=== PATIENT | female | born 1965 | race Caucasian/White ===

== ENCOUNTER 2017-02-28 08:00 | Outpatient (CLI) | payer BC | END 2017-02-28 08:01 | disposition home or self-care (01) | LOC: BICMAMMO 08:00 | PROVIDERS: ATTEND Internal Medicine Hematology & Oncology | DX: Z08 Encounter for follow-up examination after completed treatment for malignant neoplasm (principal); Z85.3 Personal history of malignant neoplasm of breast | CPT/HCPCS: G0206-LT; G0279 ==

== ENCOUNTER 2017-04-24 08:41 | Outpatient (CLI) | payer BC ==
[2017-04-24] MEDS ORDERED: ISOVUE-370 76%-LOCM 1 ML ONE (13:35)
== END 2017-04-24 08:42 | disposition home or self-care (01) ==
LOC: BICCT 08:41
PROVIDERS: ATTEND Internal Medicine Hematology & Oncology
DX: C50.411 Malignant neoplasm of upper-outer quadrant of right female breast (principal); J98.4 Other disorders of lung; K80.80 Other cholelithiasis without obstruction; I71.2 Thoracic aortic aneurysm, without rupture; Z98.890 Other specified postprocedural states
CPT/HCPCS: 71260; 74160

== ENCOUNTER 2017-09-14 14:08 | Outpatient (CLI) | payer BC | END 2017-09-14 14:09 | disposition home or self-care (01) | LOC: BICMAMMO 14:08 | PROVIDERS: ATTEND Internal Medicine Hematology & Oncology | DX: L29.9 Pruritus, unspecified (principal); Z85.3 Personal history of malignant neoplasm of breast | CPT/HCPCS: 77066; G0279 ==

== ENCOUNTER 2017-10-19 07:59 | Outpatient (CLI) | payer BC, MEDICARE ==
[2017-10-19] MEDS ORDERED: Iopamidol 370 76% 100 ML VIAL ONE (09:00)
--- NOTE | 2017-10-19 12:27 | CT ---
CT CHEST WITH CONTRAST: CT ABDOMEN WITH CONTRAST: HISTORY: Breast cancer, I74.4. Malignant neoplasm, upper outer quadrant, right female breast, C50.411. COMPARISON: Outside facility chest, abdomen, and pelvis CT from April 2017. FINDINGS: No mediastinal adenopathy. Heart size is normal. Pulmonary trunk size is normal. Post surgical wayne nges, right breast. Some peripheral pleural scarring in the right upper lobe, anteriorly. No suspicious pulmonary nodule . No internal mammary adenopathy. Left breast is unremarkable. Liver is unremarkable. Cholelithiasis is present. The spleen is unremarkable, as well as the pancreas. The kidneys are unremarkable. Mild spondylosis, mid thoracic spine. Incidental note of persistent left supracardinal vein. IMPRESSION: No evidence of metastatic disease in the chest or abdomen. POS: SCARLET
== END 2017-10-19 08:00 | disposition home or self-care (01) ==
LOC: SCSCT 07:59
PROVIDERS: ATTEND Internal Medicine Hematology & Oncology
DX: C50.919 Malignant neoplasm of unspecified site of unspecified female breast (principal)
CPT/HCPCS: 71260; 74160

== ENCOUNTER 2018-04-25 07:33 | Outpatient (CLI) | payer BC ==
--- NOTE | 2018-04-25 09:16 | CT ---
CT CHEST WITH IV COTNRAST CT ABDOMEN WITH IV CONTRAST: PROVIDED CLINICAL HISTORY: Breast cancer. FINDINGS: Comparison is made with a study dated 10/19/2017. The heart, pericardium, and great vessels demonstrate a stable CT appearance. There is interval development of several enlarged left axillary lymph nodes measuring up to 1.5 cm in short axis. No additional thoracic lymph node enlargement is apparent. Changes of prior right mastectomy and axillary lymph node dissection are again seen. The lungs are free of significant opacity. The airway appears patent and of normal caliber. There is an approximately 1 cm x 5 mm (transverse x AP) pleural-based mass present at the posterior l ateral aspect of the right hemithorax deep to the right 8th rib. There is an abnormal area of soft t issue density present at the medial aspect of the right hemithorax in a paraspinous location adjacent to the T7 and T8 vertebral bodies, measuring approximately 1.7 x 0.8 cm. Additional abnormal pleur al-based soft tissue density is seen adjacent to the T6 vertebral body on the right. There is no evidence for pleural fluid or pneumothorax. The airway appears patent and of normal evelin norberto. Gallstones are again seen. The solid abdominal organs demonstrate a stable CT appearance. No bowel dilatation, inflammatory fat stranding, free fluid, or lymph node enlargement apparent. The osseous structures demonstrate no concerning osteoblastic or osteolytic lesions. IMPRESSION: 1. Development of pleural-based soft tissue masses involving the right hemithorax concerning for ple ural-based metastatic disease. 2. Development of left axillary lymph node enlargement, which may also reflect metastatic disease. 3. Otherwise, stable CT of the chest and abdomen. POS: TPC
== END 2018-04-25 07:34 | disposition home or self-care (01) ==
LOC: BICCT 07:33
PROVIDERS: ATTEND Internal Medicine Hematology & Oncology
DX: C50.411 Malignant neoplasm of upper-outer quadrant of right female breast (principal); R91.8 Other nonspecific abnormal finding of lung field; R59.0 Localized enlarged lymph nodes
CPT/HCPCS: 71260; 74160

== ENCOUNTER 2018-04-26 11:29 | Emergency (ER) | payer BC ==
--- NOTE | 2018-04-26 12:53 | ULT ---
RIGHT UPPER EXTREMITY VENOUS ULTRASOUND: Indication: Right upper extremity edema and redness. Technique: Grayscale, color doppler, and spectral doppler images were obtained of the venous structur es of the right upper extremity. FINDINGS: There is appropriate flow, augmentation, and compression involving the venous structures of the right upper extremity. IMPRESSION: No evidence of venous thrombosis within the right upper extremity. POS: MILADIS
[2018-04-26 13:25] LABS: Anion Gap 15 mmol/L (10-20); BUN (Urea Nitrogen) 13 mg/dL (9.8-20.1); Calc. Creatinine Clearance 0 mL/min (70-130); Calcium 8.9 mg/dL (7.8-10.44); Carbon Dioxide 23 mmol/L (22-29); Chloride 106 mmol/L (98-107); Estimated GFR-MDRD 73; Glucose 96 mg/dL (70-105); Potassium 3.6 mmol/L (3.5-5.1); Sodium 140 mmol/L (136-145)
[2018-04-26] MEDS ORDERED: Piperacillin/Tazobactam 4.5 GM VIAL ONE (13:25)
[2018-04-26] MEDS ORDERED: Sodium Chloride 0.9% 100 ML ONE ×2 (13:26→14:34)
[2018-04-26 13:37] LABS: Band 1 % (5-11); Eosinophils 2 % (0-10); Hemoglobin 11.1 g/dL (12.0-16.0); Lymphocytes 33 % (21-51); MDiff Complete? YES; Mean Corpuscular Hemoglobin 29.1 pg (27.0-31.0); Mean Corpuscular Volume 88.4 fL (78.0-98.0); Mean Platelet Volume 9.1 fL (7.4-10.4); Monocytes 3 % (0-10); Neutrophil 57 % (42-75); Platelet Count 228 thou/uL (130-400); Platelet Morphology Comment Appears Adequate; RBC Distribution Width 12.2 % (11.5-14.5); Reactive Lymphocytes 4 % (0-10); White Blood Cell (WBC) Count 8.8 thou/uL (4.8-10.8)
[2018-04-26] MEDS ORDERED: Vancomycin HCl 500 MG VIAL ONE (14:29)
== END 2018-04-26 16:10 | disposition home or self-care (01) ==
LOC: SCSER 11:29
DX: L03.113 Cellulitis of right upper limb (principal); E78.5 Hyperlipidemia, unspecified; Z79.899 Other long term (current) drug therapy
CPT/HCPCS: 80048; 83605; 85025; 85379; 87040; 96365; 96367; J2543; J3370; J7050

== ENCOUNTER 2018-05-02 12:39 | Outpatient (CLI) | payer BC ==
--- NOTE | 2018-05-02 15:38 | PET ---
PET WITH CT SKULL TO MID THIGH: CLINICAL HISTORY: Breast cancer. Reference made to CT thorax exam dated 04/25/18, 10/19/17, and 10/27/16. FINDINGS: There is appropriate biodistribution of radiotracer activity. RADIOPHARMACEUTICAL: 11.75 mCi F18-FDG IV intermixed with 10 mL sodium chloride 0.9%. FINDINGS: There is hypermetabolic left axillary adenopathy, with maximum SUV of 9.3. This correlates to enlarge d lymph nodes on the most recent comparison chest CT. Pleural based mass of the posteromedial right h emithorax adjacent to the thoracic vertebral column demonstrates hypermetabolic activity with maximum SUV of 6.9. There is also posteriorly located pleural based nodularity along the right hemithorax, w ith SUV maximum of 3.3. These multifocal, pleural based masses of the medial and posterior right bartolo thorax have developed/enlarged when referencing comparison exams and given hypermetabolic activity, a re most consistent with progressive metastases, along the contralateral left axillary adenopathy. Incidental note of cholelithiasis and moderate gallbladder distention. There is mild increased metabo lic activity involving lateral right chest wall soft tissues abutting the posterior margin of right m astectomy site with SUV maximum of 3, nonspecific. This finding is just posterior to the numerous met allic clips of the anterolateral right chest wall. There is mild pleural thickening and slight degree of underlying subpleural interstitial prominence of the lateral right lung. There is a left chest port with tip terminating at SVC. No hypermetabolic osseous lesions are identif ied. IMPRESSION: Evidence of intrathoracic metastasis, bilaterally, involving hypermetabolic left axillary adenopathy and multifocal pleural based hypermetabolic lesions of the posteromedial right hemithorax. POS: SCARLET
== END 2018-05-02 12:40 | disposition home or self-care (01) ==
LOC: PET 12:39
PROVIDERS: ATTEND Internal Medicine Hematology & Oncology
DX: C50.919 Malignant neoplasm of unspecified site of unspecified female breast (principal); C50.411 Malignant neoplasm of upper-outer quadrant of right female breast; C79.89 Secondary malignant neoplasm of other specified sites; R59.0 Localized enlarged lymph nodes
CPT/HCPCS: 78815; A9552

== ENCOUNTER 2018-05-09 08:07 | Day surgery (SDC) | payer BC ==
[2018-05-08 14:48] VITALS: BMI 39.4
[~2018-05-09 08:07] MED LIST: Prevnar 13-Val Conj/PF 0.5 ML SYRINGE IM ONE
[2018-05-09 08:34] LABS: INR-International Normal Ratio 0.9; PTT 30.6 SEC (22.9-36.1); Prothrombin Time 12.6 SEC (12.0-14.7)
[2018-05-09 09:49] VITALS: BP 116/78; TEMP 97.7
--- NOTE | 2018-05-09 12:06 | ULT ---
ULTRASOUND GUIDED LYMPH NODE BIOPSY: HISTORY: Left axillary mass. COMPARISON: PET CT 05/02/2018. FINDINGS: The patient was brought to the ultrasound suite. All questions were answered. Informed consent was obtained. Timeout was performed. The patient's left axilla was prepped and draped in normal sterile fashion. Three mL of Lidocaine wa s instilled into the superficial and deep soft tissues. Using a 20-gauge 10 mL needle, a total of 2 cores were obtained. The patient tolerated the procedure well without complication. IMPRESSION: Technically successful ultrasound-guided left axillary lymph node biopsy. POS: SCARLET
== END 2018-05-09 09:50 | disposition home or self-care (01) ==
LOC: ULT 08:07
PROVIDERS: ATTEND Internal Medicine Hematology & Oncology
PROC: 07D63ZX Extraction of Left Axillary Lymphatic, Percutaneous Approach, Diagnostic (ICD-10-PCS; principal; 2018-05-09)
DX: R22.2 Localized swelling, mass and lump, trunk (principal); Z87.891 Personal history of nicotine dependence; Z88.8 Allergy status to other drugs, medicaments and biological substances
CPT/HCPCS: 36415; 38505; 85610; 85730; 88305

== ENCOUNTER 2018-05-22 12:36 | Outpatient (CLI) | payer BC | END 2018-05-22 12:37 | disposition home or self-care (01) | LOC: ULT 12:36 | PROVIDERS: ATTEND Internal Medicine Hematology & Oncology | DX: C50.411 Malignant neoplasm of upper-outer quadrant of right female breast (principal); I08.1 Rheumatic disorders of both mitral and tricuspid valves; Z79.899 Other long term (current) drug therapy | CPT/HCPCS: 93306 ==

== ENCOUNTER 2018-05-27 11:15 | Emergency (ER) | payer BC ==
[~2018-05-27 11:15] MED LIST changes: +Iopamidol 370 76% 100 ML VIAL ONE; -Prevnar 13-Val Conj/PF 0.5 ML SYRINGE IM ONE
[2018-05-27] MEDS ORDERED: Morphine 4 MG/ML VIAL ONE (11:42)
[2018-05-27] MEDS ORDERED: Ondansetron PF 4 MG/2 ML Vial ONE (11:48)
[2018-05-27 11:53] LABS: ALT (SGPT) 24 U/L (8-55); AST (SGOT) 22 U/L (5-34); Albumin 3.8 g/dL (3.5-5.0); Alkaline Phosphatase 66 U/L (40-150); Anion Gap 16 mmol/L (10-20); BUN (Urea Nitrogen) 13 mg/dL (9.8-20.1); Bilirubin, Total 0.6 mg/dL (0.2-1.2); Calc. Creatinine Clearance 0 mL/min (70-130); Calcium 10.7 mg/dL (7.8-10.44); Carbon Dioxide 21 mmol/L (22-29); Chloride 101 mmol/L (98-107); Estimated GFR-MDRD 74; Globulin 3.5 g/dL (2.4-3.5); Glucose 112 mg/dL (70-105); Lipase 8 U/L (8-78); Potassium 4.2 mmol/L (3.5-5.1); Protein, Total 7.3 g/dL (6.0-8.3); Sodium 134 mmol/L (136-145)
[2018-05-27 12:02] LABS: Band 1 % (5-11); Eosinophils 1 % (0-10); Hemoglobin 12.3 g/dL (12.0-16.0); Hypochromia SLIGHT = 6-15 cells (100X) (0-5/hpf); Large Platelets SLIGHT; Lymphocytes 32 % (21-51); MDiff Complete? YES; Mean Corpuscular HGB CONC 32.7 g/dL (32.0-36.0); Mean Corpuscular Hemoglobin 28.9 pg (27.0-31.0); Mean Corpuscular Volume 88.2 fL (78.0-98.0); Mean Platelet Volume 10.1 fL (7.4-10.4); Monocytes 20 % (0-10); Neutrophil 42 % (42-75); Platelet Count 133 thou/uL (130-400); Platelet Morphology Comment Appears Adequate; Red Blood Cell (RBC) Count 4.26 mill/uL (4.20-5.40); White Blood Cell (WBC) Count 3.4 thou/uL (4.8-10.8)
--- NOTE | 2018-05-27 13:57 | CT ---
CT OF THE CHEST AND ABDOMEN AND PELVIS: Date: 05/27/18 COMPARISON: CT of chest and abdomen dated 04/25/18, whole body PET scan dated 05/02/18. HISTORY: Diarrhea. TECHNIQUE: Axial CT imaging at 5 mm intervals from the thoracic inlet through the pubic symphysis with IV contra st. Coronal reformatted imaging obtained. FINDINGS: The lack of oral contrast media limits assessment of the bowel. There is evidence of prior right-side d mastectomy with numerous postoperative clips along the right chest wall and in the right axillary r egion. Enlarged lymph nodes are noted within the left axilla, as seen on prior studies, measuring up to 1.7 cm in short axis dimension. There is a Port-A-Cath present, distal tip within the distal SVC. No discrete hilar or mediastinal adenopathy. There is no pneumothorax noted on either side. No discrete pulmonary parenchymal mass lesion or nodule is evident on either side. There are pleural based areas of soft tissue thickening within the posterior aspect of the right hemithorax, including anterior to the right 8th rib on axial image 41 measuring 7-8 mm in AP dimension, and anterior to the 9th rib on image 45 measuring 5.0 mm. These were described on the 05/02/[address] as being FDG-avid. Vascular structures of the chest appear patent. Review of the osseous structures of the chest demonstrate no acute finings. CT of abdomen and pelvis demonstrates no free intraperitoneal air or fluid. Cholelithiasis is noted. There is a tiny hypodensity in the right lobe of the liver on image 54 measu ring 4.0 mm, too small to characterize. The spleen, pancreas, adrenal glands, and kidneys are unremar kable. The colon demonstrates a mild degree of diffuse colonic wall prominence, significance uncertain as th ere is no significant pericolonic fat stranding. The prominence of the colonic wall is seen from the cecum to the level of the distal descending colon. A mild degree of colitis is a possibility. However , this could be solely on the basis of underdistention. No evidence for bowel obstruction or abscess. The vascular structures of the abdomen/pelvis appear patent. No pelvic, mesenteric, or retroperitonea l lymphadenopathy is seen Review of the osseous structures of the abdomen/pelvis demonstrates no worrisome lytic or blastic les ions. IMPRESSION: 1. Small areas of pleural based plaque formation in the right hemithorax and lymphadenopathy in the left axillary region, evidence of metastatic disease as seen on the 05/02/[address] 2. Postoperative change including axillary node dissection and mastectomy on the right. 3. Nonspecific diffuse prominence of the colonic wall with no pericolonic fat stranding. Findings may signify underdistention or mild colitis. No evidence for bowel obstruction or abscess. POS: MLIADIS
[2018-05-27 14:21] LABS: Bilirubin Negative (Negative); Blood, Urine Trace (Negative); Clarity Clear (Clear); Glucose, Urine (Dipstick) Negative (Negative); Leukocyte Negative (Negative); Nitrite Negative (Negative); Protein, Urine (Dipstick) Negative (Neg-Trace); Urobilinogen 0.2 mg/dL (0.2-1.0); pH, Urine 7.5 (5.0-9.0)
[2018-05-27 14:26] LABS: Bacteria/HPF Rare-Few HPF (None Seen); RBC/HPF 0-3 HPF (0-3); WBC/HPF None Seen HPF (0-3)
== END 2018-05-27 14:01 | disposition home or self-care (01) ==
LOC: SCSER 11:15
DX: R11.2 Nausea with vomiting, unspecified (principal); R19.7 Diarrhea, unspecified; E78.5 Hyperlipidemia, unspecified
CPT/HCPCS: 71260; 74177; 80053; 81003; 81015; 83605; 83690; 85025; 96361; 96374; 96375; J2270; J2405; Q9967

== ENCOUNTER 2018-07-18 10:29 | Outpatient (CLI) | payer BC ==
--- NOTE | 2018-07-18 12:12 | PET ---
EXAM: PET CT skull to mid thigh COMPARISON: 05/02/2018 HISTORY: Inflammatory right breast cancer with recurrence in 2019 TECHNIQUE: A PET/CT was performed from the skull to the mid thigh after administration of 10.5 millic uries of F-18 FDG. Evaluation was performed on a [email or web address] workstation. FINDINGS: NECK: No areas of hypermetabolic activity CHEST: The patient is status post right mastectomy. Hypermetabolic activity is seen in the left nippl e with thickening of the anterior skin. Maximum SUV value is 2.9. The previously seen enlarged hypermetabolic left axillary lymph nodes are no longer enlarged or hypermetabolic. There is hypermeta bolic activity in the right axillary surgical bed with max SUV of 3.3. The previously seen hypermetabolic nodules that were pleural-based in the right thorax are no longer present. ABDOMEN/PELVIS: No areas of hypermetabolic activity SKELETON: Diffuse hypermetabolic activity likely represents marrow reactivation. No focal suspicious areas of hypermetabolic activity. Hypermetabolic activity in the proximal aspect of both arms likeliest represents movement during the time of the exam. CT images used for attenuation correction show a Mediport with its tip in these appear vena cava. Gal lstones are seen in the gallbladder.. IMPRESSION: 1. Improvement in left axillary lymphadenopathy 2. Persistent hypermetabolic activity in the left nipple/skin 3. Nonspecific hypermetabolic activity in the right axillary surgical bed.
== END 2018-07-18 10:30 | disposition home or self-care (01) ==
LOC: PET 10:29
PROVIDERS: ATTEND Internal Medicine Hematology & Oncology
DX: C50.911 Malignant neoplasm of unspecified site of right female breast (principal); R59.0 Localized enlarged lymph nodes
CPT/HCPCS: 78815; A9552

== ENCOUNTER 2018-07-30 09:42 | Outpatient (CLI) | payer BC ==
--- NOTE | 2018-07-30 10:31 | MMO ---
Left Breast MAMMO Unilat Diag DDI LT+RADHA. CLINICAL HISTORY: Patient is 52 years old and is seen for diagnostic exam and skin thickening or retraction on clinical examination in the left breast. The patient has no family history of breast cancer. The patient has a history of right Mastectomy at age 49 - malignant. VIEWS: The views performed were: left craniocaudal with tomosynthesis; left mediolateral oblique with tomosynthesis; and left mediolateral. FILMS COMPARED: The present examination has been compared to prior imaging studies performed at [facility] on 02/24/2016, 02/28/2017 and 09/14/2017, and at [facility] on 04/01/2015. MAMMOGRAM FINDINGS: There are scattered fibroglandular densities. There are no suspicious masses, calcifications or areas of architectural distortion. There are benign appearing calcifications in both breasts. Stable left breast mass. There are no suspicious masses, suspicious calcifications, or new areas of architectural distortion. IMPRESSION: THERE IS NO MAMMOGRAPHIC EVIDENCE OF MALIGNANCY. A ROUTINE FOLLOW-UP MAMMOGRAM IN 1 YEAR IS RECOMMENDED. THE RESULTS OF THIS EXAM WERE SENT TO THE PATIENT. ACR BI-RADS Category 2 - Benign finding MAMMOGRAPHY NOTE: 1. A negative mammogram report should not delay a biopsy if a dominant of clinically suspicious mass is present. 2. Approximately 10% to 15% of breast cancers are not detected by mammography. 3. Adenosis and dense breasts may obscure an underlying neoplasm.
== END 2018-07-30 09:43 | disposition home or self-care (01) ==
LOC: BICMAMMO 09:42
PROVIDERS: ATTEND Internal Medicine Hematology & Oncology
DX: C50.411 Malignant neoplasm of upper-outer quadrant of right female breast (principal); R93.7 Abnormal findings on diagnostic imaging of other parts of musculoskeletal system; R92.8 Other abnormal and inconclusive findings on diagnostic imaging of breast
CPT/HCPCS: G0279

== ENCOUNTER 2018-08-09 12:40 | Outpatient (CLI) | payer BC | END 2018-08-09 12:41 | disposition home or self-care (01) | LOC: ULT 12:40 | PROVIDERS: ATTEND Internal Medicine Hematology & Oncology | DX: Z51.11 Encounter for antineoplastic chemotherapy (principal); C50.919 Malignant neoplasm of unspecified site of unspecified female breast; R93.7 Abnormal findings on diagnostic imaging of other parts of musculoskeletal system; I08.3 Combined rheumatic disorders of mitral, aortic and tricuspid valves; Z79.899 Other long term (current) drug therapy | CPT/HCPCS: 93306 ==

== ENCOUNTER 2018-09-19 08:15 | Outpatient (CLI) | payer BC ==
--- NOTE | 2018-09-19 11:54 | PET ---
PET CT: HISTORY: 52-year-old female with inflammatory breast cancer, diagnosed in 2015 with recurrence in 2019. TECHNIQUE: PET scanning with CT attenuation correction was performed from the base of the brain through the prox imal thighs following the intravenous administration of 11.4 mCi F18-FDG in the right-sided Port-A-Ca th. COMPARISON: PET CT of 07/18/18. FINDINGS: No nya hypermetabolism is seen in the neck, chest, axilla, abdomen, or pelvis. No hypermetabolic pu lmonary nodules, liver, adrenal, or skeletal lesions are seen. There is physiologic activity in the GI and tracts, heart, and the visualized portions of the brai n. The CT scan used for attenuation correction demonstrates no evidence for pleural effusions or ascites . There are postop changes of right mastectomy. Cholelithiasis is again seen. IMPRESSION: No evidence of metastatic disease. POS: SCARLET
== END 2018-09-19 08:16 | disposition home or self-care (01) ==
LOC: PET 08:15
PROVIDERS: ATTEND Internal Medicine Hematology & Oncology
DX: C50.919 Malignant neoplasm of unspecified site of unspecified female breast (principal)
CPT/HCPCS: 78815; A9552

== ENCOUNTER 2018-11-11 13:56 | Outpatient (CLI) | payer BC | END 2018-11-11 13:57 | disposition home or self-care (01) | LOC: ULT 13:56 | PROVIDERS: ATTEND Internal Medicine Hematology & Oncology | DX: C50.411 Malignant neoplasm of upper-outer quadrant of right female breast (principal); I08.3 Combined rheumatic disorders of mitral, aortic and tricuspid valves | CPT/HCPCS: 93306 ==

== ENCOUNTER 2018-12-18 10:59 | Outpatient (CLI) | payer BC ==
--- NOTE | 2018-12-18 11:36 | BD ---
EXAM: Bone densitometry using DEXA HISTORY: 53 yo female. Screening for postmenopausal osteoporosis. Unspecified menopausal and perimenopausal di sorder FINDINGS: L1--bone mineral density 0.997 g/sq cm; T score 0.1 ; Z score 0.9 L2--bone mineral density 0.976 g/sq cm; T score -0.5 ; Z score 0.4 L3--bone mineral density 1.044 g/sq cm; T score -0.4 ; Z score 0.6 L4--bone mineral density 1.122 g/sq cm; T score 0.6 ; Z score 1.5 Total L1-L4--bone mineral density 1.039 g/sq cm; T score -0.1 ; Z score 0.9 Left femoral neck--bone mineral density0.950; T score 0.9 ; Z score 1.8 Total proximal left femur--bone mineral density 1.221; T score 2.3 ; Z score 2.9 IMPRESSION: Normal BMD.
== END 2018-12-18 11:00 | disposition home or self-care (01) ==
LOC: BICMAMMO 10:59
PROVIDERS: ATTEND Internal Medicine Hematology & Oncology
DX: Z13.820 Encounter for screening for osteoporosis (principal); N95.9 Unspecified menopausal and perimenopausal disorder
CPT/HCPCS: 77080

== ENCOUNTER 2018-12-20 08:15 | Outpatient (CLI) | payer BC ==
--- NOTE | 2018-12-20 11:40 | PET ---
PET CT SKULL TO MID THIGH: COMPARISON: Prior PET/CT 09/19/2018. HISTORY: Malignant neoplasm of upper outer quadrant right breast. TECHNIQUE: A PET/CT was performed from the skull to the mid thigh after administration of 11.3 millicuries of F- 18 FDG. Evaluation was performed on a [employer] workstation. FINDINGS: NECK: No areas of hypermetabolic activity CHEST: There has been involvement of hypermetabolic activity within an enlarging left axillary lymph node, which measures 1.7 cm in diameter. The maximum SUV is 4. ABDOMEN/PELVIS: No areas of hypermetabolic activity. SKELETON: There are foci of mild hypermetabolic activity involving right ribs, seen at the posterior lateral right 8th rib, in the posterior medial right 6th rib, 2.9 and 3.1 SUV maximum, respectively. CT images used for attenuation correction show cholelithiasis.. IMPRESSION: 1. Newly developed hypermetabolic, enlarged left axillary lymph node. 2. Mild hypermetabolic foci of right ribs, as discussed above. Discrete CT correlate osseous abnormal ities are not visualized. Findings may be further assessed with whole body bone scan. Transcribed Date/Time: 12/20/2018 12:12 PM
== END 2018-12-20 08:16 | disposition home or self-care (01) ==
LOC: PET 08:15
PROVIDERS: ATTEND Internal Medicine Hematology & Oncology
DX: C50.411 Malignant neoplasm of upper-outer quadrant of right female breast (principal); R59.0 Localized enlarged lymph nodes; C79.9 Secondary malignant neoplasm of unspecified site
CPT/HCPCS: 78815; 82728; A9552

== ENCOUNTER 2019-02-18 13:11 | Outpatient (CLI) | payer BC | END 2019-02-18 13:12 | disposition home or self-care (01) | LOC: ULT 13:11 | PROVIDERS: ATTEND Internal Medicine Hematology & Oncology | DX: Z51.11 Encounter for antineoplastic chemotherapy (principal); C50.411 Malignant neoplasm of upper-outer quadrant of right female breast | CPT/HCPCS: 93306 ==

== ENCOUNTER 2019-03-11 13:11 | Outpatient (CLI) | payer BC ==
--- NOTE | 2019-03-11 15:04 | PET ---
Radionucleotide PET scan with CT attenuation correction HISTORY: Right breast cancer upper outer quadrant. Metastatic disease. Restaging. COMPARISON: Multiple exams back to 05/02/2018. FINDINGS: Physiologic uptake of radiotracer throughout the enteric system and along each urinary trac t. In region of hypermetabolic left axillary adenopathy on the prior study, no abnormal uptake is present on the current exam. At the posterior medial aspect of the right upper chest pleural, in area of thickening and increase a ctivity on older exams, uptake is more conspicuous on today's study, with a maximum SUV of 4.3 (most recently 3.2). It has waxed and waned subtly over the course of the patient's PET exams. Simila r in appearance to the 05/02/2018 study. Right rib abnormalities on the prior study are not hypermetabolic on today's exam. Postoperative changes the right breast again demonstrated. Stones within the gallbladder lumen. IMPRESSION: Overall improvement since the most recent study, with resolution of the hypermetabolic le ft axillary lymph node.
== END 2019-03-11 13:12 | disposition home or self-care (01) ==
LOC: PET 13:11
PROVIDERS: ATTEND Internal Medicine Hematology & Oncology
DX: C50.411 Malignant neoplasm of upper-outer quadrant of right female breast (principal); R93.7 Abnormal findings on diagnostic imaging of other parts of musculoskeletal system
CPT/HCPCS: 78815; A9552

== ENCOUNTER 2019-06-19 12:27 | Outpatient (CLI) | payer BC | END 2019-06-19 12:28 | disposition home or self-care (01) | LOC: ULT 12:27 | PROVIDERS: ATTEND Internal Medicine Hematology & Oncology | DX: Z51.11 Encounter for antineoplastic chemotherapy (principal); C50.411 Malignant neoplasm of upper-outer quadrant of right female breast; I08.1 Rheumatic disorders of both mitral and tricuspid valves; Z79.899 Other long term (current) drug therapy | CPT/HCPCS: 93306 ==

== ENCOUNTER 2019-07-18 08:17 | Outpatient (CLI) | payer BC ==
--- NOTE | 2019-07-18 14:00 | PET ---
Radionucleotide PET scan with CT attenuation correction HISTORY: Malignant neoplasm upper outer quadrant right female breast. Metastatic disease. Restaging. COMPARISON: 03/11/2019 and 12/21/2019. FINDINGS: Physiologic uptake of radiotracer throughout the enteric system and along each urinary trac t. Postoperative changes of the right breast. No hypermetabolic axillary adenopathy is evident. A small focus of activity in the superior vena cava is associated with injection of radiotracer through the Mediport. At the posterior medial aspect of the right thoracic cavity, where a subtle ill-defined area of soft tissue density abuts the right side of the T5 and T6 vertebral bodies, abnormal uptake is again demonstrated with max SUV now 7.2 (previously 4.3). At the far posterior aspect of the right thoracic cavity, there is more subtle area of soft tissue de nsity at the level of the pleura. These are favored to be soft tissue abnormalities rather than bone lesions. At the level of the right seventh rib, max SUV is 2.8 (previously 2.1), and at the leve l of the eighth rib max SUV is 3.1. No osseous destruction evident on the CT images. Nondiagnostic CT attenuation correction images again show cholelithiasis. IMPRESSION : Uptake associated with the right posterior thoracic abnormalities has increased again, now with max S UV values similar to the 12/20/2018 exam. Left axilla remains negative. No new lesions.
== END 2019-07-18 08:18 | disposition home or self-care (01) ==
LOC: PET 08:17
PROVIDERS: ATTEND Internal Medicine Hematology & Oncology
DX: C50.411 Malignant neoplasm of upper-outer quadrant of right female breast (principal); R93.7 Abnormal findings on diagnostic imaging of other parts of musculoskeletal system
CPT/HCPCS: 78815; A9552

== ENCOUNTER 2020-02-17 10:48 | Inpatient (IN) | payer BC ==
[2020-02-17 13:39] LABS: Bacteria/HPF None Seen HPF (None Seen); Bilirubin Negative (Negative); Blood, Urine 1+ (Negative); Clarity Clear (Clear); Glucose, Urine (Dipstick) Normal (Negative); Ketone, Urine Negative (Negative); Leukocyte 25 Leu/uL (Negative); Nitrite Negative (Negative); Protein, Urine (Dipstick) Negative (Neg-Trace); RBC/HPF 0-3 HPF (0-3); Specific Gravity, Urine 1.005 (1.002-1.036); Squamous Epithelial None Seen HPF (0-3); Urobilinogen Normal mg/dL (Less than 2); WBC/HPF 0-3 HPF (0-3)
--- NOTE | 2020-02-17 13:51 | CT ---
CT Abdomen Pelvis W Con History: Rectal bleeding Comparison: CT examination October 2019 Findings: New bilateral paraspinal consolidative processes the mid to lower thoracic spine extending outside of the field of view. No pericardial effusion. Cholelithiasis without cholecystitis. There is high density debris within the ascending colon. No lar ge or small bowel obstruction. Exam was performed during a delayed phase as there is contrast within the renal collecting systems an d ureters. The appendix is felt to be visualized and appears normal. No intraperitoneal gas or fluid. No hydronephrosis. Adrenal glands are unremarkable. No acute osseous abnormality. Impression: 1. Small volume layering hyperdense debris within the ascending colon can be seen with hemorrhage. 2. No bowel obstruction. 3. New bilateral paraspinal linear consolidative processes within both lower lobes suggesting radiati on pneumonitis. 4. Cholelithiasis without cholecystitis.
[2020-02-17 15:05] LABS: #Eosinphils 0.1 thou/uL (0.0-0.7); #Lymphocytes 1.1 thou/uL (1.20-3.40); #Monocytes 0.9 thou/uL (0.11-0.59); #Neutrophils 5.1 thou/uL (1.40-6.50); %Basophils 0.4 % (0.0-1.0); %Eosinophils 1.1 % (0.0-10.0); %Lymphocytes 15.6 % (21.0-51.0); %Monocytes 12.2 % (0.0-10.0); %Neutrophils 70.7 % (42.0-75.0); Hemoglobin 14.7 g/dL (12.0-16.0); Mean Corpuscular HGB CONC 33.5 g/dL (32.0-36.0); Mean Corpuscular Hemoglobin 30.1 pg (27.0-31.0); Mean Corpuscular Volume 89.6 fL (78.0-98.0); Mean Platelet Volume 9.9 fL (7.4-10.4); Platelet Count 138 thou/uL (130-400); RBC Distribution Width 13.3 % (11.5-14.5); White Blood Cell (WBC) Count 7.2 thou/uL (4.8-10.8)
[2020-02-17 15:52] LABS: ALT (SGPT) 34 U/L (8-55); AST (SGOT) 71 U/L (5-34); Albumin 3.8 g/dL (3.5-5.0); Alkaline Phosphatase 119 U/L (40-110); Anion Gap 18 mmol/L (10-20); BUN (Urea Nitrogen) 6 mg/dL (9.8-20.1); Bilirubin, Total 1.3 mg/dL (0.2-1.2); Calc. Creatinine Clearance 0 mL/min (70-130); Calcium 9.6 mg/dL (7.8-10.44); Carbon Dioxide 20 mmol/L (22-29); Chloride 96 mmol/L (98-107); Globulin 4.3 g/dL (2.4-3.5); Glucose 100 mg/dL (70-105); Potassium 3.9 mmol/L (3.5-5.1); Protein, Total 8.1 g/dL (6.0-8.3); Sodium 130 mmol/L (136-145)
[2020-02-17] MEDS ORDERED: Pantoprazole 40 MG VIAL ONE ×2 (17:35→17:43)
[2020-02-17 17:55] LABS: #Eosinphils 0.1 thou/uL (0.0-0.7); #Monocytes 0.8 thou/uL (0.11-0.59); #Neutrophils 4.6 thou/uL (1.40-6.50); %Basophils 0.7 % (0.0-1.0); %Eosinophils 1.4 % (0.0-10.0); %Lymphocytes 14.4 % (21.0-51.0); %Monocytes 12.8 % (0.0-10.0); %Neutrophils 70.7 % (42.0-75.0); Hemoglobin 13.5 g/dL (12.0-16.0); Mean Corpuscular HGB CONC 34.1 g/dL (32.0-36.0); Mean Corpuscular Hemoglobin 30.5 pg (27.0-31.0); Mean Corpuscular Volume 89.3 fL (78.0-98.0); Mean Platelet Volume 9.4 fL (7.4-10.4); Platelet Count 126 thou/uL (130-400); RBC Distribution Width 13.3 % (11.5-14.5); Red Blood Cell (RBC) Count 4.44 mill/uL (4.20-5.40); White Blood Cell (WBC) Count 6.6 thou/uL (4.8-10.8)
--- NOTE | 2020-02-17 19:38 | PDOC.HHP ---
Hospitalist HPI - History of Present Illness Blood from rectum History of Present Illness: PCP: Dr. Ann The patient is a 54-year-old female with a past medical history significant for stage IV breast cancer last treated with radiation therapy (12/22), followed by Dr. Ann that presents to the emergency department for the above complaint. The patient reports that she has not had a normal bowel movement in approximately 7 days. This past Sunday, the patient attempted to disimpact herself with no success. On Sunday, the patient self administered an enema and took mag citrate with little relief of symptoms. Yesterday, the patient noticed a little bit of bright red blood on the toilet tissue after attempting to have a bowel movement. Then this morning, the patient noticed bright red blood in the toilet water. The patient had associated lower quadrant abdominal pain described as aching and fullness. She has had a decreased appetite, stating that she is unable to eat or drink because she feels "full". Patient went to a local urgent care and disimpaction was attempted with little success. So the patient came to the emergency department for further evaluation and treatment. She reports taking ibuprofen 60mg 1-2 times daily after having her knee scope this summer. Also, she was recently started on Kadcyla for her chemotherapy treatments. She reports that she has taken 3 cycles and knows that a side effect is hepatotoxicity, so she is worried that the bleeding might be related to her liver function. She has no history of cirrhosis. She she denies heavy alcohol intake. She has no family history of bleeding disorders. She denies nausea, vomiting, or hemoptysis. She denies dysuria or hematuria. She denies fever and chills. She denies chest pain, heart palpitations and lightheadedness/dizziness. She denies shortness of breath, cough and wheezing. She has no other complaints at this time. ED Course: VITAL SIGNS SunFeb 17, 2020 10:50 MICHAEL Rivera, [facility] BP: 133/102, Pulse: 119, Resp: 18, Pain: 0, O2 sat: 92 on (Room Air), Time: 02/17/2020 10:50. VITAL SIGNS SunFeb 17, 2020 12:09 Janina Lemons BP: 105/77, Pulse: 109, Resp: 18, Temp: 98.4 (Oral), Pain: 0, O2 sat: 95, Time: 02/17/2020 12:09. VITAL SIGNS SunFeb 17, 2020 14:30 Elms, MICHAEL Delia BP: 108/88, Pulse: 104, Resp: 16, Pain: 0, O2 sat: 95 on (Room Air), Time: 02/17/2020 14:30. VITAL SIGNS SunFeb 17, 2020 16:30 Elms, Delia RODRIGUEZ BP: 118/93, Pulse: 105, Resp: 16, Pain: 0, O2 sat: 95 on (Room Air), Time: 02/17/2020 16:30. VITAL SIGNS SunFeb 17, 2020 17:55 Elms, Delia RODRIGUEZ BP: 134/94, Pulse: 115, Resp: 14, Temp: 98.8 (Oral), Pain: 0, O2 sat: 96 on (Room Air), Time: 02/17/2020 17:55. Medications: Protonix intravenous 80 mg IV Push Given 17:48 02/17/2020 sodium chloride 0.9 % intravenous 1 L IV Fluid Infusion Given 17:47 02/17/2020 sodium chloride 0.9 % intravenous 500 mL IV Fluid Infusion Given 15:10 02/17/2020 Hospitalist ROS - Review of Systems All other systems reviewed; all pertinent +/- noted in HPI/Subj - Medication Medications: Xanax 0.25 mg p.o. as needed anxiety Allergies: None venlafaxine Hospitalist History - Past Medical History Source: patient, RN notes reviewed Heme/Onc: reports: Cancer (Stage IV breast cancer treated with radical mastecto my October 2019. Last radiation therapy December 2019. Followed by Dr. Ann.) Psych: reports: Anxiety - Past Surgical History Past Surgical History: reports: Other (Knee scope 08/22, radical right mastectomy (10/22)) - Social History Smoking Status: Former smoker (Quit greater than 25 years ago) Alcohol: reports: Rare Drugs: reports: none Living Situation: Alone Occupation: Works at [employer] Activity level: independent ambulation - Exam General Appearance: NAD, awake alert. negative: ill appearing Eye: anicteric sclera ENT: normocephalic atraumatic Neck: supple, symmetric Heart: no murmur, no gallops, no rubs, normal peripheral pulses Heart - other findings: Tachycardic Respiratory: CTAB, no wheezes, no rales, no ronchi, no tachypnea Gastrointestinal: soft, no guarding, no rigidity, tender to palpation (Mild tenderness lower quadrants). negative: normal bowel sounds (Hyperactive) Extremities: negative: no edema (Trace edema, wears bilateral FILEMON hose) Skin: no rashes Neurological: no focal deficits Musculoskeletal: normal tone, normal strength Psychiatric: normal affect, A&O x 3 Hospitalist Results - Labs Result Diagrams: 02/17/20 23:53 02/17/20 14:49 Lab results: WBC 6.6 thou/uL (4.8-10.8) 02/17/20 17:46 Hgb 13.5 g/dL (12.0-16.0) 02/17/20 17:46 Hct 39.6 % (36.0-47.0) 02/17/20 17:46 MCV 89.3 fL (78.0-98.0) 02/17/20 17:46 Plt Count 126 thou/uL (130-400) L 02/17/20 17:46 Neutrophils % 70.7 % (42.0-75.0) 02/17/20 17:46 Sodium 130 mmol/L (136-145) L 02/17/20 14:49 Potassium 3.9 mmol/L (3.5-5.1) 02/17/20 14:49 Chloride 96 mmol/L (98-107) L 02/17/20 14:49 Carbon Dioxide 20 mmol/L (22-29) L 02/17/20 14:49 BUN 6 mg/dL (9.8-20.1) L 02/17/20 14:49 Creatinine 0.77 mg/dL (0.6-1.1) 02/17/20 14:49 Glucose 100 mg/dL (70-105) 02/17/20 14:49 Calcium 9.6 mg/dL (7.8-10.44) 02/17/20 14:49 Total Bilirubin 1.3 mg/dL (0.2-1.2) H 02/17/20 14:49 AST 71 U/L (5-34) H 02/17/20 14:49 ALT 34 U/L (8-55) 02/17/20 14:49 Alkaline Phosphatase 119 U/L (40-110) H 02/17/20 14:49 Serum Total Protein 8.1 g/dL (6.0-8.3) 02/17/20 14:49 Albumin 3.8 g/dL (3.5-5.0) 02/17/20 14:49 Urine Ketones Negative mg/dL (Negative) 02/17/20 13:01 Urine Blood 1+ (Negative) A 02/17/20 13:01 Urine Nitrite Negative (Negative) 02/17/20 13:01 Ur Leukocyte Esterase 25 Judy/uL (Negative) A 02/17/20 13:01 Urine RBC 0-3 HPF (0-3) 02/17/20 13:01 Urine WBC 0-3 HPF (0-3) 02/17/20 13:01 Ur Squamous Epith Cells None Seen HPF (0-3) 02/17/20 13:01 Urine Bacteria None Seen HPF (None Seen) 02/17/20 13:01 - EKG Interpretation EKG: Sinus tachycardia on the monitor tech no ectopy. Heart rate 113 QTc 452. - Radiology Interpretation CT scan - abdomen Status: report reviewed by me Additional Comment: Impression: 1. Small volume layering hyperdense debris within the ascending colon can be seen with hemorrhage. 2. No bowel obstruction. 3. New bilateral paraspinal linear consolidative processes within both lower lobes suggesting radiation pneumonitis. 4. Cholelithiasis without cholecystitis. Hospitalist H&P A/P - Problem (1) GI bleed Code(s): K92.2 - GASTROINTESTINAL HEMORRHAGE, UNSPECIFIED Status: Acute (2) Abdominal pain Code(s): R10.9 - UNSPECIFIED ABDOMINAL PAIN Status: Acute (3) Constipation Code(s): K59.00 - CONSTIPATION, UNSPECIFIED Status: Chronic (4) Stage IV breast cancer in female Code(s): C50.919 - MALIGNANT NEOPLASM OF UNSP SITE OF UNSPECIFIED FEMALE BREAST Status: Chronic (5) Anxiety Code(s): F41.9 - ANXIETY DISORDER, UNSPECIFIED Status: Chronic - Plan Plan: 54/F with PMH SIV breast cancer presents for constipation/GI bleed. Admit to oncology floor, observation status. Expected length of stay less than 2 midnights. Presented tachycardic, NL BP, RR, SPO2, afebrile. CT abdomen pelvis positive for small volume layering hyperdense debris within the ascending colon can be seen with hemorrhage. No bowel obstruction. EKG sinus tachycardia, no ST elevations. Hemoglobin 14.7, repeat 13.5 Hematocrit 49.3, repeat 39.6 WBC 7.2, UA unremarkable #GI bleed Patient mild tachycardia, BP stable. Dr. Patel consulted by ERMD. Ordered bowel regimen and trend H/H. Trend H/H, orthostatic vital signs. Check PT/INR. Continue PPI and IV fluids. Patient already T&S Consult Dr. Patel in a.m. N.p.o. #Constipation Appears to be significant amount of stool retained in colon per CT abdomen pelvis. Fleet mineral enema x1. Start bowel regimen, Senokot S. #Abdominal pain Likely related to problem #1 and #2. #Stage IV breast cancer in female Underwent radical right mastectomy October 2019. Last radiation therapy December 2019. Follow-up with Dr. Ann. Recently started on Kadcyla, 3 cycles. #Anxiety Denies SI/HI. Takes Xanax 0.25 mg p.o. as needed. Restart home medication. SCDs for DVT prophylaxis. No pharmacological DVT prophylaxis. PPI for GI prophylaxis. Full code. Discussed the case with Dr. Coleman.
[2020-02-17] MEDS ORDERED: Ondansetron ODT 4 MG TAB PO PRN (20:18)
[2020-02-17] MEDS ORDERED: Ondansetron PF 4 MG/2 ML Vial IVP PRN (20:18)
[2020-02-17] MEDS ORDERED: Bisacodyl 5 MG TAB PO PRN (20:18)
[2020-02-17] MEDS ORDERED: Senokot S 8.6-50 MG TAB PO PRN (20:18)
[2020-02-17 21:19] LABS: INR-International Normal Ratio 1.1; PTT 39.8 sec (22.9-36.1); Prothrombin Time 14.3 sec (12.0-14.7)
[2020-02-17] MEDS ORDERED: Mineral Oil ENEMA PR SCH (22:00)
[2020-02-17 22:08] VITALS: BMI 32.1
[2020-02-17] MEDS: Sodium Chloride 0.9% 1,000 ML IV SCH (22:29)
[2020-02-17] MEDS: Pantoprazole 40 MG VIAL IVP SCH (22:29)
[2020-02-18] MEDS ORDERED: Lidocaine 2% Viscous Solution 10 ML, Aluminum & Magnesium Hydroxide 30 ML SSW SCH (02:45)
[2020-02-18] MEDS: Acetaminophen 325 MG TAB PO PRN ×2 (04:45→16:21)
[2020-02-18 06:48] LABS: Hemoglobin 11.9 g/dL (12.0-16.0); Mean Corpuscular HGB CONC 32.9 g/dL (32.0-36.0); Mean Corpuscular Hemoglobin 30.8 pg (27.0-31.0); Mean Corpuscular Volume 93.5 fL (78.0-98.0); Platelet Count 103 thou/uL (130-400); RBC Distribution Width 13.3 % (11.5-14.5); Red Blood Cell (RBC) Count 3.87 mill/uL (4.20-5.40); White Blood Cell (WBC) Count 4.6 thou/uL (4.8-10.8)
[2020-02-18 06:49] LABS: #Eosinphils 0.1 thou/uL (0.0-0.7); #Lymphocytes 0.7 thou/uL (1.20-3.40); #Monocytes 0.6 thou/uL (0.11-0.59); #Neutrophils 3.2 thou/uL (1.40-6.50); %Basophils 0.3 % (0.0-1.0); %Eosinophils 2.2 % (0.0-10.0); %Lymphocytes 14.9 % (21.0-51.0); %Monocytes 13.5 % (0.0-10.0)
[2020-02-18] MEDS: Sodium Chloride 0.9% 1,000 ML IV SCH ×2 (07:50→19:15)
[2020-02-18] MEDS: Pantoprazole 40 MG VIAL IVP SCH ×2 (08:14→23:07)
--- NOTE | 2020-02-18 09:04 | CON ---
DATE OF CONSULTATION: 02/17/2020 REASON FOR CONSULT: Rectal bleeding. HISTORY OF PRESENT ILLNESS: Ms. Lennon is a pleasant 54-year-old female who was recently diagnosed with recurrent metastatic breast cancer. She started a new chemotherapy a few weeks ago and developed severe constipation. She had not had a bowel movement from last Sunday to this Sunday. When at home, she began to have severe lower abdominal pain, rectal pain, and just liquid stools seeping out. She did notice some blood. She ultimately gave herself some suppositories, enemas; and when the pain got worse, she went to urgent care ER this morning after taking mag citrate on Sunday. She still did not feel like she has completely emptied. She went to the urgent care this morning because she was having rectal bleeding in the bowl. She is very concerned about her liver function that making her bleed because of her metastatic disease and her chemotherapy. The report from her is that their practitioner at urgent care did a rectal exam and did not feel anything and because of her bleeding, transferred her here. Here, she had a hemoglobin of 14.7 at 14:00 and at 17:00, it was 13.5. She has had no further bowel movements since she has been here. The residents told me she had a rectal exam and that nothing was felt on exam, that was what was done at the urgent care, and the rectal exam was not repeated here. A CT scan without contrast was done here that showed a little bit of debris in the ascending colon. No bowel obstruction. Some lower lobe infiltration changes and some gallstones. Presently, she is without complaints. She has had no further bleeding. She is being admitted and she states that the residents told her they are going to put her on Protonix and a bowel regimen maybe tomorrow. PAST MEDICAL HISTORY: She had a colonoscopy which was normal in 2015. She has recurrent breast cancer, sees Dr. Ann for this. Inflammatory breast cancer diagnosed in 2014, neoadjuvant treatment, and mastectomy. PAST SURGICAL HISTORY: Includes a knee scope in 2019, stage IV breast cancer, previous right mastectomy in October 2019, radiation therapy in December 2019. ALLERGIES: NONE. PRESENT MEDICATIONS: KADCYLA chemotherapy. Takes some ibuprofen at home. Further medications, she was given Protonix here and some IV fluids and home medications are Tamoxifen, vitamin D3, lidocaine cream. REVIEW OF SYSTEMS: Negative for melena, nausea, vomiting, dysphagia, odynophagia, weight loss. PHYSICAL EXAMINATION: GENERAL: She is resting on her stretcher in the hallway. She has been cleared from the ER room and is awaiting a bed upstairs. VITAL SIGNS: Blood pressure is ; pulse 105, came down to 99. She is in no distress. HEENT: Oropharynx, no lesions. NECK: Supple without adenopathy. LUNGS: Clear. HEART: Regular. No murmurs. ABDOMEN: Soft and nontender. There is no rebound or guarding. EXTREMITIES: No clubbing, cyanosis, edema. LABORATORY DATA: White count 6.6; hemoglobin 13.5 at 1700, it was 14.7 at 1400, on it was 12.4; platelets 126. INR not done. Sodium 130, potassium 3.9, BUN and creatinine are 6 and 0.7. Bilirubin is 1.3, AST 71, ALT 34, alkaline phosphatase 119. CT scan reviewed, but no significant stool seen remaining in the colon. ASSESSMENT: 1. Rectal bleeding likely related to stercoral ulceration. No signs of hemorrhage at this time. 2. Mildly elevated liver function tests. This may be related to her chemo, her cancer, or gallstones; but she has no pain in the upper abdomen. 3. Fecal impaction. There was question whether she was disimpacted at the outside facility. No one at this facility has done a rectal exam. I cannot do a rectal exam on her right now because she is not in the room. RECOMMENDATIONS: Monitor H and H. If they stay stable, a rectal exam needs to be done tomorrow; and if that show any further impaction, she can be started on a bowel regimen and go home with that. To me, on her scan, although there is no contrast, there is a little bit of rectal thickening that is probably related to a little stercoral ulceration. Again, no large fecal impactions are seen on this study at this time. If the patient has further bleeding, other source, we could consider endoscopy but I do not think that is going to be necessary. We will follow. Job ID: [id number]
[2020-02-18 10:00] LABS: SARS-CoV-2 MS2 Positive; SARS-CoV-2 N Gene Negative; SARS-CoV-2 S Gene Negative; SARS-CoV-2 by NAA Not Detected (NotDetected); SARS-CoV-2 orf1ab Negative
[2020-02-18 12:04] LABS: Hemoglobin 13.5 g/dL (12.0-16.0)
[2020-02-18] MEDS: ALPRAZolam 0.25 MG TAB PO PRN (16:23)
--- NOTE | 2020-02-18 17:04 | PDOC.HOSPP ---
- Subjective Encounter Date: 02/18/20 Subjective: The patient is complaining of lower abdominal pain. - Objective Vital Signs & Weight: Vital Signs (12 hours) Temp Pulse Resp BP BP BP Pulse Ox 02/18/20 12:00 97.5 F L 96 20 135/83 123/86 124/86 93 L 02/18/20 08:00 97.8 F 81 20 106/71 116/82 114/83 96 Weight Admit Weight 211 lb 8 oz Weight 211 lb 8 oz I&O: 02/17/20 02/18/20 02/19/20 06:59 06:59 06:59 Intake Total 900 Balance 900 Result Diagrams: 02/18/20 11:45 02/17/20 14:49 Hospitalist ROS - Medication Medications: Active Medications Generic Name Dose Route Start Last Admin Trade Name Freq PRN Reason Stop Dose Admin Acetaminophen 650 mg 02/17/20 20:18 02/18/20 16:21 Acetaminophen 325 Mg Tab PO 650 mg Q4H PRN Administration Headache/Fever/Mild Pain (1-3) Alprazolam 0.25 mg 02/17/20 20:28 02/18/20 16:23 Alprazolam 0.25 Mg Tab PO 0.25 mg BIDPRN PRN Administration Anxiety Sodium Chloride 1,000 mls @ 100 mls/hr 02/17/20 22:00 02/18/20 07:50 Normal Saline 0.9% IV 1,000 mls .Q10H SARITA Administration Pantoprazole Sodium 40 mg 02/17/20 21:00 02/18/20 08:14 Pantoprazole 40 Mg Vial IVP 40 mg BID SARITA Administration - Exam General Appearance: awake alert Neck: supple Heart: RRR Respiratory: normal chest expansion, no tachypnea Extremities: no cyanosis, no clubbing Hosp A/P (1) GI bleed Code(s): K92.2 - GASTROINTESTINAL HEMORRHAGE, UNSPECIFIED Status: Acute (2) Anxiety Code(s): F41.9 - ANXIETY DISORDER, UNSPECIFIED Status: Chronic (3) Stage IV breast cancer in female Code(s): C50.919 - MALIGNANT NEOPLASM OF UNSP SITE OF UNSPECIFIED FEMALE BREAST Status: Chronic - Plan No active bleeding was reported today. Continue to monitor H&H. GI planning rectal exam tomorrow prior to discharge.
[2020-02-18 18:20] LABS: Hemoglobin 12.7 g/dL (12.0-16.0)
[2020-02-18] MEDS ORDERED: GoLYTELY 4,000 ml Bottle PO SCH (20:45)
--- NOTE | 2020-02-18 21:05 | PRG ---
DATE OF SERVICE: 02/18/2020 SUBJECTIVE: Ms. Lennon has passed three more red bloody liquidy stools today. She has had some pressure and discomfort in the rectum and some urgency before bowel movements, but no persistent rectal pain. She feels like she passed the impaction out on Sunday, but she has been having bleeding since then. OBJECTIVE: VITAL SIGNS: Temperature is 97.5, pulse 96, blood pressure 123/86. GENERAL: She is in no acute distress. Alert and oriented x3. LUNGS: Clear to auscultation bilaterally. HEART: Regular rate and rhythm without murmur. ABDOMEN: Soft, nontender, and nondistended. Bowel sounds are present. EXTREMITIES: No lower extremity edema. RECTAL: Reveals scant liquid red blood in the rectal vault. There is no solid stool in the rectal vault. There is no anal fissure. IMPRESSION: Hematochezia. Was followed fecal impaction, which she passed a couple of days ago, but now has been having persistent bloody red stools and rectal discomfort. The bleeding is worrying her. She has no fissure on exam. She did have a negative colonoscopy back in 2016, which was normal. She could have a stercoral ulceration or proctitis versus other source. RECOMMENDATIONS: I discussed options with her and she would like to find out what the bleeding source is and evaluate. Persistent discomfort and bleeding are worrying her. We will therefore follow through with colonoscopy tomorrow. Job ID: [id number]
[2020-02-19] MEDS: Sodium Chloride 0.9% 1,000 ML IV SCH ×2 (03:32→17:40)
[2020-02-19] MEDS: traMADol HCl 50 MG TAB PO PRN ×2 (03:38→20:35)
[2020-02-19] MEDS: Acetaminophen 325 MG TAB PO PRN ×2 (06:29→13:53)
[2020-02-19] MEDS: ALPRAZolam 0.25 MG TAB PO PRN ×2 (06:30→13:53)
[2020-02-19] MEDS: Pantoprazole 40 MG VIAL IVP SCH ×2 (08:26→20:36)
--- NOTE | 2020-02-19 08:27 | PDOC.FMACP ---
Advance Care Planning - Problem (1) Palliative care encounter Status: Acute Code(s): Z51.5 - ENCOUNTER FOR PALLIATIVE CARE (2) Stage IV breast cancer in female Status: Chronic Code(s): C50.919 - MALIGNANT NEOPLASM OF UNSP SITE OF UNSPECIFIED FEMALE BREAST (3) GI bleed Status: Acute Code(s): K92.2 - GASTROINTESTINAL HEMORRHAGE, UNSPECIFIED (4) Anxiety Status: Chronic Code(s): F41.9 - ANXIETY DISORDER, UNSPECIFIED - Note Participants: patient, palliative care Summary: Palliative Care has addressed Advanced Care Planning. The diagnosis, prognosis and goals of care were discussed. Appropriate forms and documentation to accomplish the goals of care were discussed. All questions were answered. *Confirmed resuscitation status *MPOA and Directive to physician completed, original and copy given to patient, copy placed on chart for medical records. Please refer to Palliative note in note section. Palliative care will sing off as Directives were addressed, if we can assist in the future with revisiting Goal of Care, disease prognosis assist, complex decision making, support/coping please reconsult our team. Thank you for this very appropriate consult. Time Spent (mins): 15
[2020-02-19] MEDS ORDERED: Lidocaine 1% PF 5 ML VIAL ONE (10:43)
[2020-02-19] MEDS ORDERED: PROPOFOL 200 MG/20 ML VIAL ONE (10:43)
--- NOTE | 2020-02-19 13:08 | OP ---
DATE OF PROCEDURE: 02/19/2020 MARKETING COORDINATOR SURGEON: None. PROCEDURE PERFORMED: Colonoscopy, diagnostic. INDICATIONS: 1. Rectal bleeding. 2. Recent rectal fecal impaction. MEDICATIONS: See Anesthesia record. FINDINGS: After discussion of the risks, benefits, and alternatives of the procedure, informed consent was obtained and witnessed. Pre-endoscopic cardiopulmonary examination was satisfactory. Time-out was performed before sedation was achieved. Sedation was achieved with Anesthesia assistance in the endoscopy unit. A Pentax adult upper endoscope was prepared. Digital rectal exam was performed, which was unremarkable. The colonoscope was inserted into the anus. Careful rectal examination was performed with the endoscope in the forward and retroflexed position. The patient has large internal hemorrhoids, which were nonbleeding at this time. There was also some patchy mild proctitis with single small erosion distally in the rectum, which appears to represent mild resolving stercoral proctitis. There was no bleeding at this time. No deep ulcerations. No mass lesion. The colonoscope was then advanced all the way to the cecum. The cecal base was identified by the appendiceal orifice as well as the ileocecal valve. The terminal ileum was intubated and the ileal mucosa appeared normal. The colonoscope was slowly withdrawn in a gradual and circumferential manner with careful examination of the entire colonic mucosa. The quality of the prep was adequate. There were few diverticula in the sigmoid colon. The remainder of the colonoscopy appears normal. The colonoscope was completely withdrawn and the patient allowed to recover. The patient tolerated the procedure well. There were no immediate postprocedure complications. IMPRESSION: 1. Mild resolving stercoral proctitis with single small erosion, nonbleeding. 2. Large internal hemorrhoids. 3. Few sigmoid diverticula. 4. Otherwise, normal colonoscopy to the terminal ileum. RECOMMENDATIONS: 1. Stool softener twice daily. 2. Be aggressive with bowel regimen going forward to avoid future impaction. 3. Advance diet. GI will sign off. Please call back anytime with questions or concerns. Job ID: [id number]
--- NOTE | 2020-02-19 16:50 | PDOC.HOSPP ---
- Subjective Encounter Date: 02/19/20 Subjective: The patient was seen and examined this morning. She had multiple bloody bowel movements yesterday. - Objective Vital Signs & Weight: Vital Signs (12 hours) Temp Pulse Resp BP BP BP BP 02/19/20 13:11 97.4 F L 96 20 136/89 02/19/20 11:04 98.1 F 95 20 119/81 02/19/20 08:00 98.0 F 90 18 110/72 118/79 107/76 Pulse Ox 02/19/20 13:11 94 L 02/19/20 11:04 94 L 02/19/20 08:00 94 L Weight Admit Weight 211 lb 8 oz Weight 211 lb 8 oz I&O: 02/18/20 02/19/20 02/20/20 06:59 06:59 06:59 Intake Total 900 1000 Output Total 1000 Balance 900 0 Result Diagrams: 02/18/20 18:03 02/17/20 14:49 Hospitalist ROS - Medication Medications: Active Medications Generic Name Dose Route Start Last Admin Trade Name Freq PRN Reason Stop Dose Admin Acetaminophen 650 mg 02/17/20 20:18 02/19/20 13:53 Acetaminophen 325 Mg Tab PO 650 mg Q4H PRN Administration Headache/Fever/Mild Pain (1-3) Alprazolam 0.25 mg 02/17/20 20:28 02/19/20 13:53 Alprazolam 0.25 Mg Tab PO 0.25 mg BIDPRN PRN Administration Anxiety Sodium Chloride 1,000 mls @ 100 mls/hr 02/17/20 22:00 02/19/20 03:32 Normal Saline 0.9% IV 1,000 mls .Q10H SARITA Administration Ondansetron HCl 4 mg 02/17/20 20:18 02/19/20 06:45 Ondansetron Pf 4 Mg/2 Ml Vial IVP 4 mg Q6H PRN Administration Nausea/Vomiting Pantoprazole Sodium 40 mg 02/17/20 21:00 02/19/20 08:26 Pantoprazole 40 Mg Vial IVP 40 mg BID SARITA Administration Polyethylene Glycol/Electrolytes 4,000 ml 02/18/20 20:45 02/18/20 20:55 Golytely 4,000 Ml Bottle PO 02/19/20 20:46 4,000 ml ONE SARITA Administration Tramadol HCl 50 mg 02/18/20 21:10 02/19/20 03:38 Tramadol Hcl 50 Mg Tab PO 50 mg Q6H PRN Administration Severe Pain (7-10) - Exam General Appearance: awake alert ENT: normocephalic atraumatic Neck: supple, no JVD Respiratory: normal chest expansion, no tachypnea Extremities: no cyanosis, no clubbing Neurological: cranial nerve grossly intact, no focal deficits Hosp A/P (1) GI bleed Code(s): K92.2 - GASTROINTESTINAL HEMORRHAGE, UNSPECIFIED Status: Acute (2) Anxiety Code(s): F41.9 - ANXIETY DISORDER, UNSPECIFIED Status: Chronic (3) Stage IV breast cancer in female Code(s): C50.919 - MALIGNANT NEOPLASM OF UNSP SITE OF UNSPECIFIED FEMALE BREAST Status: Chronic - Plan The patient had multiple bloody bowel movements yesterday. Patient is stable. Colonoscopy showed internal hemorrhoids and stercoral proctitis with some erosions. The patient has been restarted on a diet. If H&H remains stable by tomorrow, we will discharge the patient on a bowel regimen.
[2020-02-20] MEDS: Sodium Chloride 0.9% 1,000 ML IV SCH ×3 (02:35→11:53)
[2020-02-20 05:13] LABS: Anion Gap 9 mmol/L (10-20); BUN (Urea Nitrogen) 8 mg/dL (9.8-20.1); Calc. Creatinine Clearance 165 mL/min (70-130); Calcium 7.5 mg/dL (7.8-10.44); Carbon Dioxide 27 mmol/L (22-29); Chloride 107 mmol/L (98-107); Glucose 83 mg/dL (70-105); Sodium 140 mmol/L (136-145)
[2020-02-20 06:29] LABS: Band 9 % (5-11); Eosinophils 3 % (0-10); Hemoglobin 10.1 g/dL (12.0-16.0); Lymphocytes 18 % (21-51); MDiff Complete? YES; Mean Corpuscular HGB CONC 34.1 g/dL (32.0-36.0); Mean Corpuscular Hemoglobin 31.4 pg (27.0-31.0); Mean Platelet Volume 9.3 fL (7.4-10.4); Monocytes 10 % (0-10); Neutrophil 60 % (42-75); Platelet Count 70 thou/uL (130-400); Platelet Morphology Comment Appears Decreased; Red Blood Cell (RBC) Count 3.22 mill/uL (4.20-5.40); White Blood Cell (WBC) Count 3.3 thou/uL (4.8-10.8)
[2020-02-20] MEDS: Pantoprazole 40 MG VIAL IVP SCH (08:45)
[2020-02-20] MEDS ORDERED: Potassium Chloride 20 MEQ TAB PO SCH (09:45)
[2020-02-20 11:59] VITALS: BP 128/87; TEMP 98.2
--- NOTE | 2020-02-21 14:42 | EKG ---
Test Reason : Blood Pressure : / mmHG Vent. Rate : 113 BPM Atrial Rate : 113 BPM P-R Int : 166 ms QRS Dur : 090 ms QT Int : 330 ms P-R-T Axes : 047 039 035 degrees QTc Int : 452 ms Sinus tachycardia Possible Left atrial enlargement Anterior infarct , age undetermined Abnormal ECG Confirmed by KRISTIN HUNTER ([id number]), non linear editor BRIAN MATIAS ([id number]) on 02/21/2020 2:41:59 PM Referred By: Confirmed By:KRISTIN HUNTER
--- NOTE | 2020-02-23 03:37 | PQF ---
CLINICAL DOCUMENTATION CLARIFICATION FORM: Dear : Jana Pedersen Date / Time: 02/23/20 033 Please exercise your independent, professional judgment in responding to the clarification form. Clinical indicators are provided on the bottom of this form for your review In your clinical opinion based on clinical findings below, can you please identify the etiology of Rectal bleeding if due to: Please check appropriate box(es): [ > ] Ulcerative Proctitis [ > ] Diverticular disease [ ] Internal hemorrhoids [ ] Other diagnosis [ ] Unable to determine Physician Signature: Date/Time: For continuity of documentation, please document condition throughout progress notes and discharge summary. Thank You. To be completed by CDI/Coding staff for physician review: Present Clinical Indicators - Signs / Symptoms / Labs Results and Location in Medical Record [X] CT scan: Small volume layering hyperdense debris within the ascending colon can bee seen with hemorrhage Imaging Dr Cannon 02/16 [X] Pt attempted to disimpact herself with no success H&P p1 02/16 [facility] [X] Pt noticed bright red blood in the toilet water H&P p1 02/16 [facility] [X] GI bleeding with mild tachycardia H&P p5 02/16 [facility] [X] Rectal bleeding likley related to stercoral ulceration. No signs of hemorrhage Consult p2 02/16 Dr Patel [X] Mild resolving stercolar proctitis with single small erosion, non bleeding Operative report Dr Esteves [X] Large internal hemorrhoids Operative report Dr Esteves [X] Diverticular sigmoid Operative report Dr Esteves Present Risk Factors Results and Location in Medical Record [X] Constipation H&P p5 02/16 [facility] [X] Fecal impaction Consult p2 02/16 Dr Patel Present Treatments Results and Location in Medical Record [X] IV Protonix 40 mg MAR 02/16 [X] Mineral oil 133 mg MAR 02/16 [X] IV Zofran 4 mg MAR 02/16 [X] GE consult Consult Dr Patel 02/16 [X] EGD Operative report Dr Esteves CDS/Supervisor [employer] Signature: Pretty Malik Phone #: [phone] Date/Time: 02/23/2020 0335 This is a permanent part of the Medical Record [facility]
== END 2020-02-20 13:14 | disposition home or self-care (01) | DRG 385 ==
LOC: ERS 10:48 → T4-B 17:51 → OBSVTOIN 02-18 14:03
PROVIDERS: ADMIT Family Medicine; ATTEND Internal Medicine
PROC: 0DJD8ZZ Inspection of Lower Intestinal Tract, Via Natural or Artificial Opening Endoscopic (ICD-10-PCS; principal; 2020-02-19)
DX: K51.211 Ulcerative (chronic) proctitis with rectal bleeding (principal); K57.31 Diverticulosis of large intestine without perforation or abscess with bleeding; Z20.828 Contact with and (suspected) exposure to other viral communicable diseases; K62.89 Other specified diseases of anus and rectum; K64.8 Other hemorrhoids; K59.00 Constipation, unspecified; F41.9 Anxiety disorder, unspecified; C50.919 Malignant neoplasm of unspecified site of unspecified female breast; Z79.899 Other long term (current) drug therapy; Z90.11 Acquired absence of right breast and nipple; Z92.3 Personal history of irradiation
CPT/HCPCS: 36415; 74177; 80048; 80053; 81003; 81015; 85025; 85610; 85730; 86850; 86900; 86901; 87086; 87635; 93005; 96361; 96374; 96376; C9113; G0378; J1642; J2405; J2704; Q9967; U0003

== ENCOUNTER 2020-06-22 09:49 | Outpatient (CLI) | payer BC | END 2020-06-22 09:50 | disposition home or self-care (01) | LOC: PET 09:49 | PROVIDERS: ATTEND Internal Medicine Hematology & Oncology | DX: C50.411 Malignant neoplasm of upper-outer quadrant of right female breast (principal); C79.51 Secondary malignant neoplasm of bone; C77.8 Secondary and unspecified malignant neoplasm of lymph nodes of multiple regions | CPT/HCPCS: 78815; 80053; A9552 ==

== ENCOUNTER 2020-07-29 12:58 | Outpatient (CLI) | payer BC | END 2020-07-29 12:59 | disposition home or self-care (01) | LOC: ULT 12:58 | PROVIDERS: ATTEND Internal Medicine Hematology & Oncology | DX: Z51.11 Encounter for antineoplastic chemotherapy (principal); C50.411 Malignant neoplasm of upper-outer quadrant of right female breast; Z79.899 Other long term (current) drug therapy | CPT/HCPCS: 93306 ==

== ENCOUNTER 2020-11-16 09:20 | Outpatient (CLI) | payer BC | END 2020-11-16 09:21 | disposition home or self-care (01) | LOC: PET 09:20 | PROVIDERS: ATTEND Internal Medicine Hematology & Oncology | DX: C79.51 Secondary malignant neoplasm of bone (principal); C50.411 Malignant neoplasm of upper-outer quadrant of right female breast; J94.8 Other specified pleural conditions; I89.8 Other specified noninfective disorders of lymphatic vessels and lymph nodes | CPT/HCPCS: 78815; A9552 ==

== ENCOUNTER 2020-12-02 12:27 | Outpatient (CLI) | payer BC | END 2020-12-02 12:28 | disposition home or self-care (01) | LOC: ULT 12:27 | PROVIDERS: ATTEND Internal Medicine Hematology & Oncology | DX: Z51.11 Encounter for antineoplastic chemotherapy (principal); C50.411 Malignant neoplasm of upper-outer quadrant of right female breast; I35.1 Nonrheumatic aortic (valve) insufficiency | CPT/HCPCS: 93306 ==

== ENCOUNTER 2021-01-18 09:39 | Outpatient (CLI) | payer BC | END 2021-01-18 09:40 | disposition home or self-care (01) | LOC: PET 09:39 | PROVIDERS: ATTEND Internal Medicine Hematology & Oncology | DX: C79.51 Secondary malignant neoplasm of bone (principal); C50.411 Malignant neoplasm of upper-outer quadrant of right female breast; R59.0 Localized enlarged lymph nodes | CPT/HCPCS: 78815; A9552 ==

== ENCOUNTER 2021-03-24 13:20 | Outpatient (CLI) | payer BC | END 2021-03-24 13:21 | disposition home or self-care (01) | LOC: ULT 13:20 | PROVIDERS: ATTEND Internal Medicine Hematology & Oncology | DX: Z51.11 Encounter for antineoplastic chemotherapy (principal); C50.411 Malignant neoplasm of upper-outer quadrant of right female breast; I08.2 Rheumatic disorders of both aortic and tricuspid valves; Z79.899 Other long term (current) drug therapy | CPT/HCPCS: 93306 ==

== ENCOUNTER → 2021-03-25 | Outpatient (CLI) | payer BC | LOC: PET 09:30 | PROVIDERS: ATTEND Internal Medicine Hematology & Oncology | DX: C50.411 Malignant neoplasm of upper-outer quadrant of right female breast (principal); C79.51 Secondary malignant neoplasm of bone | CPT/HCPCS: 78815; A9552 ==

== ENCOUNTER 2021-05-27 08:45 | Outpatient (CLI) | payer BC | END 2021-05-27 08:46 | disposition home or self-care (01) | LOC: PET 08:45 | PROVIDERS: ATTEND Internal Medicine Hematology & Oncology | DX: C50.411 Malignant neoplasm of upper-outer quadrant of right female breast (principal); C79.51 Secondary malignant neoplasm of bone | CPT/HCPCS: 78815; A9552 ==

== ENCOUNTER 2021-08-24 09:30 | Outpatient (CLI) | payer BC | END 2021-08-24 09:31 | disposition home or self-care (01) | LOC: PET 09:30 | PROVIDERS: ATTEND Internal Medicine Hematology & Oncology | DX: C50.411 Malignant neoplasm of upper-outer quadrant of right female breast (principal); C79.51 Secondary malignant neoplasm of bone | CPT/HCPCS: 78815; A9552 ==

== ENCOUNTER 2021-11-08 08:51 | Outpatient (CLI) | payer BC ==
[2021-11-08] MEDS ORDERED: Iopamidol 370 76% 100 ML VIAL ONE (12:52)
== END 2021-11-08 08:52 | disposition home or self-care (01) ==
LOC: CT 08:51
PROVIDERS: ATTEND Internal Medicine Hematology & Oncology
DX: I71.2 Thoracic aortic aneurysm, without rupture (principal); C50.411 Malignant neoplasm of upper-outer quadrant of right female breast; I77.810 Thoracic aortic ectasia; K80.20 Calculus of gallbladder without cholecystitis without obstruction; Z98.890 Other specified postprocedural states; Z90.11 Acquired absence of right breast and nipple
CPT/HCPCS: 71275; Q9967

== ENCOUNTER → 2022-03-09 | Outpatient (CLI) | payer BC | LOC: PET 11:00 | PROVIDERS: ATTEND Internal Medicine Hematology & Oncology | DX: C50.411 Malignant neoplasm of upper-outer quadrant of right female breast (principal); C79.51 Secondary malignant neoplasm of bone; K80.20 Calculus of gallbladder without cholecystitis without obstruction; J90 Pleural effusion, not elsewhere classified | CPT/HCPCS: 78815; A9552 ==

== ENCOUNTER 2022-03-15 13:38 | Outpatient (CLI) | payer BC | END 2022-03-15 13:39 | disposition home or self-care (01) | LOC: BICRAD 13:38 | PROVIDERS: ATTEND Internal Medicine Hematology & Oncology | DX: J90 Pleural effusion, not elsewhere classified (principal); C50.411 Malignant neoplasm of upper-outer quadrant of right female breast | CPT/HCPCS: 71046 ==

== ENCOUNTER 2022-07-06 11:45 | Outpatient (CLI) | payer OTHER | END 2022-07-06 11:46 | disposition home or self-care (01) | LOC: PET 11:45 | PROVIDERS: ATTEND Internal Medicine Hematology & Oncology | DX: C50.411 Malignant neoplasm of upper-outer quadrant of right female breast (principal); C79.51 Secondary malignant neoplasm of bone | CPT/HCPCS: 78815; A9552 ==

== ENCOUNTER 2022-07-11 12:42 | Outpatient (CLI) | payer SELFPAY | END 2022-07-11 12:43 | disposition home or self-care (01) | LOC: RAD 12:42 | PROVIDERS: ATTEND Internal Medicine Hematology & Oncology | DX: C50.411 Malignant neoplasm of upper-outer quadrant of right female breast (principal) | CPT/HCPCS: 71046 ==

== ENCOUNTER 2022-09-29 10:46 | Outpatient (CLI) | payer MEDICARE | END 2022-09-29 10:47 | disposition home or self-care (01) | LOC: RAD 10:46 | PROVIDERS: ATTEND Internal Medicine Critical Care Medicine | DX: R06.00 Dyspnea, unspecified (principal); I51.7 Cardiomegaly; R09.89 Other specified symptoms and signs involving the circulatory and respiratory systems; J90 Pleural effusion, not elsewhere classified; J92.9 Pleural plaque without asbestos; Z98.890 Other specified postprocedural states; Z95.9 Presence of cardiac and vascular implant and graft, unspecified | CPT/HCPCS: 71046 ==

== ENCOUNTER 2022-10-18 08:45 | Outpatient (CLI) | payer MEDICARE | END 2022-10-18 08:46 | disposition home or self-care (01) | LOC: PET 08:45 | PROVIDERS: ATTEND Internal Medicine Hematology & Oncology | DX: C50.411 Malignant neoplasm of upper-outer quadrant of right female breast (principal); C79.51 Secondary malignant neoplasm of bone | CPT/HCPCS: 78815; A9552 ==

== ENCOUNTER 2022-11-15 14:11 | Outpatient (CLI) | payer MEDICARE | END 2022-11-15 14:12 | disposition home or self-care (01) | LOC: RAD 14:11 | PROVIDERS: ATTEND Internal Medicine Critical Care Medicine | DX: R06.00 Dyspnea, unspecified (principal); J98.4 Other disorders of lung | CPT/HCPCS: 71046 ==

== ENCOUNTER 2022-12-26 08:00 | Outpatient (CLI) | payer MEDICARE | END 2022-12-26 08:01 | LOC: PET 08:00 | PROVIDERS: ATTEND Internal Medicine Hematology & Oncology | DX: C50.411 Malignant neoplasm of upper-outer quadrant of right female breast (principal); C79.51 Secondary malignant neoplasm of bone; R59.0 Localized enlarged lymph nodes | CPT/HCPCS: 78815; A9552 ==

== ENCOUNTER 2023-01-18 11:47 | Outpatient (CLI) | payer MEDICARE | END 2023-01-18 11:48 | disposition home or self-care (01) | LOC: SCSMRI 11:47 | PROVIDERS: ATTEND Internal Medicine Hematology & Oncology | DX: R51.9 Headache, unspecified (principal); R26.89 Other abnormalities of gait and mobility; C50.411 Malignant neoplasm of upper-outer quadrant of right female breast; R90.89 Other abnormal findings on diagnostic imaging of central nervous system | CPT/HCPCS: 70553 ==

== ENCOUNTER → 2023-02-28 | Outpatient (CLI) | payer MEDICARE | LOC: PET 09:30 | PROVIDERS: ATTEND Internal Medicine Hematology & Oncology | DX: C50.411 Malignant neoplasm of upper-outer quadrant of right female breast (principal); C77.9 Secondary and unspecified malignant neoplasm of lymph node, unspecified; C79.51 Secondary malignant neoplasm of bone; R59.0 Localized enlarged lymph nodes | CPT/HCPCS: 78815; A9552 ==

== ENCOUNTER 2023-03-21 13:04 | Outpatient (CLI) | payer MEDICARE | END 2023-03-21 13:05 | disposition home or self-care (01) | LOC: RAD 13:04 | PROVIDERS: ATTEND Internal Medicine Critical Care Medicine | DX: R06.00 Dyspnea, unspecified (principal) | CPT/HCPCS: 71046 ==

== ENCOUNTER 2023-09-11 09:30 | Outpatient (CLI) | payer MEDICARE | END 2023-09-11 09:31 | disposition home or self-care (01) | LOC: PET 09:30 | PROVIDERS: ATTEND Internal Medicine Hematology & Oncology | DX: C50.411 Malignant neoplasm of upper-outer quadrant of right female breast (principal); C77.9 Secondary and unspecified malignant neoplasm of lymph node, unspecified; C79.51 Secondary malignant neoplasm of bone | CPT/HCPCS: 78815; A9552 ==

== ENCOUNTER 2023-09-20 14:11 | Outpatient (CLI) | payer MEDICARE | END 2023-09-20 14:12 | disposition home or self-care (01) | LOC: RAD 14:11 | PROVIDERS: ATTEND Internal Medicine Critical Care Medicine | DX: R06.00 Dyspnea, unspecified (principal); R91.8 Other nonspecific abnormal finding of lung field; Z97.8 Presence of other specified devices | CPT/HCPCS: 71046 ==

== ENCOUNTER 2024-02-25 09:30 | Outpatient (CLI) | payer MEDICARE | END 2024-02-25 09:31 | disposition home or self-care (01) | LOC: PET 09:30 | PROVIDERS: ATTEND Internal Medicine Hematology & Oncology | DX: C50.411 Malignant neoplasm of upper-outer quadrant of right female breast (principal); R59.0 Localized enlarged lymph nodes | CPT/HCPCS: 78815; A9552 ==